=== PATIENT | female | born 1990 | race Caucasian/White ===

== ENCOUNTER 2019-07-28 18:11 | Emergency (ER) | payer MEDICARE, BC, OTHER ==
[~2019-07-28] VITALS: Ht 170.2 cm; Wt 95.2 kg
[~2019-07-28 18:11] MED LIST: ALBU90I INH; ARIP10 PO; AZIT250 PO; BIRTH CONTROL; BUPR150ER PO; CLON.5 PO; DULO60 PO; ESZO2 PO; FROV2.5 PO; HYDACE10B PO; LORA1 PO; PENVK500 PO; PROM12.5S PR; PROM25 PO; PROM25S PR; PROP10 PO; SERT50 PO; TENEX1 MG PO; Ventolin Soln3 ML INH; Zithromax250 MG PO; Zofran Odt8 MG SL
[2019-07-28] MEDS ORDERED: Colace100 MG PO (19:44)
== END 2019-07-28 19:49 | disposition home or self-care (01) ==
LOC: ER 18:11
DX: K59.00 Constipation, unspecified (principal); F41.9 Anxiety disorder, unspecified; J45.909 Unspecified asthma, uncomplicated; F31.9 Bipolar disorder, unspecified; G43.909 Migraine, unspecified, not intractable, without status migrainosus; Z87.891 Personal history of nicotine dependence
CPT/HCPCS: 74018; 99283-25

== ENCOUNTER 2019-07-31 17:02 | Emergency (ER) | payer MEDICARE, BC, OTHER ==
[~2019-07-31 17:02] MED LIST changes: +Colace100 MG PO
== END 2019-07-31 18:09 | disposition left against medical advice (07) ==
LOC: ER 17:02
DX: Z53.21 Procedure and treatment not carried out due to patient leaving prior to being seen by health care provider (principal)

== ENCOUNTER 2021-05-17 15:08 | Emergency (ER) | payer MEDICARE, BC, OTHER ==
[~2021-05-17] VITALS: Ht 170.2 cm; Wt 99.8 kg
[2021-05-19] MEDS ORDERED: FLUVOXAMINE MA100 MG PO (03:31)
[2021-05-19] MEDS ORDERED: BUPRENORPHIN-N1 EAC1 SL (07:52)
== END 2021-05-18 11:50 | disposition home or self-care (01) ==
LOC: ER 15:08
DX: F11.23 Opioid dependence with withdrawal (principal); Z76.0 Encounter for issue of repeat prescription; J45.909 Unspecified asthma, uncomplicated; Z88.2 Allergy status to sulfonamides; Z88.6 Allergy status to analgesic agent; Z88.8 Allergy status to other drugs, medicaments and biological substances; Z79.899 Other long term (current) drug therapy; Z87.891 Personal history of nicotine dependence
CPT/HCPCS: 99283; J0572

== ENCOUNTER 2021-05-18 08:05 | Emergency (ER) | payer MEDICARE, BC, OTHER ==
[~2021-05-18] VITALS: Ht 170.2 cm; Wt 99.8 kg
[2021-05-19] MEDS ORDERED: FLUVOXAMINE MA100 MG PO (03:31)
[2021-05-19] MEDS ORDERED: BUPRENORPHIN-N1 EAC1 SL (07:52)
== END 2021-05-18 09:06 | disposition home or self-care (01) ==
LOC: ER 08:05
DX: F11.10 Opioid abuse, uncomplicated (principal); J45.909 Unspecified asthma, uncomplicated; Z88.2 Allergy status to sulfonamides; Z88.6 Allergy status to analgesic agent; Z88.8 Allergy status to other drugs, medicaments and biological substances; Z79.899 Other long term (current) drug therapy; Z87.891 Personal history of nicotine dependence
CPT/HCPCS: 99281; A9270

== ENCOUNTER 2021-05-18 12:22 | Emergency (ER) | payer MEDICARE, BC, OTHER ==
[~2021-05-18] VITALS: Ht 170.2 cm; Wt 99.8 kg
[2021-05-19] MEDS ORDERED: FLUVOXAMINE MA100 MG PO (03:31)
[2021-05-19] MEDS ORDERED: BUPRENORPHIN-N1 EAC1 SL (07:52)
== END 2021-05-18 15:23 | disposition home or self-care (01) ==
LOC: ER 12:22
DX: F11.23 Opioid dependence with withdrawal (principal); Z88.2 Allergy status to sulfonamides; Z88.8 Allergy status to other drugs, medicaments and biological substances; Z79.899 Other long term (current) drug therapy; J45.909 Unspecified asthma, uncomplicated; Z87.891 Personal history of nicotine dependence
CPT/HCPCS: 99281; A9270; J0572

== ENCOUNTER 2021-05-19 01:44 | Emergency (ER) | payer MEDICARE, BC, OTHER ==
[~2021-05-19] VITALS: Ht 170.2 cm; Wt 99.8 kg
[2021-05-19] MEDS ORDERED: FLUVOXAMINE MA100 MG PO (03:31)
[2021-05-19] MEDS ORDERED: BUPRENORPHIN-N1 EAC1 SL (07:52)
== END 2021-05-19 07:59 | disposition home or self-care (01) ==
LOC: ER 01:44
DX: F11.23 Opioid dependence with withdrawal (principal); J45.909 Unspecified asthma, uncomplicated; Z88.2 Allergy status to sulfonamides; Z88.6 Allergy status to analgesic agent; Z88.8 Allergy status to other drugs, medicaments and biological substances; Z87.891 Personal history of nicotine dependence
CPT/HCPCS: 99283; A9270

== ENCOUNTER 2022-03-18 13:46 | Emergency (ER) | payer MEDICARE, BC, OTHER ==
[~2022-03-18] VITALS: Ht 170.2 cm; Wt 99.8 kg
[~2022-03-18 13:46] MED LIST changes: +BUPRENORPHIN-N1 EAC1 SL; +FLUVOXAMINE MA100 MG PO
[2022-03-19] MEDS ORDERED: SUBOXONE 8 MG-1 EACH SL (11:54)
== END 2022-03-18 17:02 | disposition home or self-care (01) ==
LOC: ER 13:46
DX: Z76.0 Encounter for issue of repeat prescription (principal); Z88.2 Allergy status to sulfonamides; Z88.6 Allergy status to analgesic agent; Z88.8 Allergy status to other drugs, medicaments and biological substances; Z79.899 Other long term (current) drug therapy; Z87.891 Personal history of nicotine dependence
CPT/HCPCS: A9270

== ENCOUNTER 2022-03-19 11:13 | Emergency (ER) | payer MEDICARE, BC, OTHER ==
[~2022-03-19] VITALS: Ht 170.2 cm; Wt 99.8 kg
[2022-03-19] MEDS ORDERED: SUBOXONE 8 MG-1 EACH SL (11:54)
== END 2022-03-19 12:06 | disposition home or self-care (01) ==
LOC: ER 11:13
DX: F11.93 Opioid use, unspecified with withdrawal (principal); Z88.2 Allergy status to sulfonamides; Z88.8 Allergy status to other drugs, medicaments and biological substances; Z88.6 Allergy status to analgesic agent; Z87.891 Personal history of nicotine dependence
CPT/HCPCS: 99281

== ENCOUNTER 2022-03-22 21:02 | Emergency (ER) | payer MEDICARE, BC, OTHER ==
[~2022-03-22] VITALS: Ht 175.3 cm; Wt 125.0 kg
[~2022-03-22 21:02] MED LIST changes: +SUBOXONE 8 MG-1 EACH SL
[2022-03-22] MEDS ORDERED: BUPRENORPHIN-N1 EACH SL (23:09)
== END 2022-03-23 00:28 | disposition home or self-care (01) ==
LOC: ER 21:02
DX: Z76.0 Encounter for issue of repeat prescription (principal); F11.23 Opioid dependence with withdrawal; F17.290 Nicotine dependence, other tobacco product, uncomplicated; Z88.6 Allergy status to analgesic agent; Z88.2 Allergy status to sulfonamides; Z88.8 Allergy status to other drugs, medicaments and biological substances
CPT/HCPCS: A9270

== ENCOUNTER 2022-06-05 18:11 | Emergency (ER) | payer MEDICARE, BC, OTHER ==
[~2022-06-05] VITALS: Ht 170.2 cm; Wt 122.5 kg
[~2022-06-05 18:11] MED LIST changes: +BUPRENORPHIN-N1 EACH SL
[2022-06-05] MEDS ORDERED: SUBOXONE 8 MG-1 EACH SL (21:00)
== END 2022-06-05 21:12 | disposition home or self-care (01) ==
LOC: ER 18:11
DX: F11.20 Opioid dependence, uncomplicated (principal); Z76.0 Encounter for issue of repeat prescription; Z88.2 Allergy status to sulfonamides; Z88.6 Allergy status to analgesic agent; Z88.8 Allergy status to other drugs, medicaments and biological substances
CPT/HCPCS: A9270